=== PATIENT | female | born 1990 | race Caucasian/White ===

== ENCOUNTER 2016-08-24 11:11 | Inpatient (IN) | payer OTHER ==
[~2016-08-24] VITALS: Ht 172.7 cm; Wt 73.0 kg
[2016-08-24] VITALS (11 sets, daily range): BP systolic 105–123; BP diastolic 51–69
[~2016-08-24 11:11] MED LIST: ACETAMINOPHEN500 MG PO; BIRTH CONTROL PILLS; CARDIZEM30 MG PO; MOTRIN800 MG PO; PERCOCET 5/31 TABLET PO; PRENATAL TABLE1 EAC3 PO; PROCARDIA20 MG PO
[2016-08-24] MEDS ORDERED: MACROBID100 MG PO (12:44)
[2016-08-24 13:26] LABS: EOSINOPHIL (%) 0.3 % (0-5); IMMATURE GRANULOCYTE (%) 0.5 % (0.0-0.7); IMMATURE GRANULOCYTE COUNT 0.1 K/uL; INSTRUMENT ABS NEUTROPHIL CT 9.3 K/uL; LYMPHOCYTE COUNT 1.3 K/uL (1.0-2.8); MCH 29.9 PG (29.0-34.0); MCHC 33.7 G/DL (30.0-36.0); MCV 88.6 FL (83-99); MEAN PLAT.VOLUME 11.2 uM^3 (9.5-12.4); MONOCYTE (%) 4.5 % (3-12); MONOCYTE COUNT 0.5 K/uL (0-0.8); NEUTROPHIL (%) 82.5 % (45-76); NEUTROPHIL COUNT 9.3 K/uL (1.8-6.4); PLATELET COUNT 167 K/uL (156-360); RBC DIS.WIDTH-CV 13.5 % (11.8-14.6); RBC DIS.WIDTH-SD 43.6 % (39-53); RED BLOOD COUNT 3.95 M/uL (3.80-5.20); WHITE BLOOD COUNT 11.2 K/uL (4.1-10.2)
[2016-08-24] MEDS ORDERED: IBUPROFEN800 MG PO (14:38)
[2016-08-25 07:30] VITALS: BP 126/76
[2016-08-25 15:50] VITALS: BP 106/60
[2016-08-25 23:45] VITALS: BP 113/58
[2016-08-26 07:59] VITALS: BP 105/67
== END 2016-08-26 13:57 | disposition home or self-care (01) | DRG 775 ==
LOC: LDRP-OP 11:11 → 2WEST 11:12 → LDRP-OP 10-04 14:20
PROVIDERS: Nurse Practitioner
DX: O70.0 First degree perineal laceration during delivery (principal); O69.81X0 Labor and delivery complicated by cord around neck, without compression, not applicable or unspecified; O34.211 Maternal care for low transverse scar from previous cesarean delivery; Z3A.38 38 weeks gestation of pregnancy; Z37.0 Single live birth
CPT/HCPCS: 85025; 86900; 86901; J2590; J7120

== ENCOUNTER 2017-04-07 04:49 | Emergency (ER) | payer OTHER ==
[~2017-04-07] VITALS: Ht 172.7 cm; Wt 58.6 kg
[~2017-04-07 04:49] MED LIST changes: +IBUPROFEN800 MG PO; +MACROBID100 MG PO
[2017-04-07 05:41] LABS: ALBUMIN 4.7 g/dL (3.2-4.8); CHLORIDE 106 mEq/L (99-109); POTASSIUM 4.3 mEq/L (3.7-5.4); SODIUM 140 mEq/L (136-147)
[2017-04-07 05:44] LABS: GLUCOSE 109 mg/dL (70-99); TOTAL PROTEIN 7.4 g/dL (6.4-8.3)
[2017-04-07 05:46] LABS: TOTAL BILIRUBIN 1.1 mg/dL (0.0-1.0)
[2017-04-07 05:47] LABS: ALKALINE PHOSPHATASE 54 IU/L (3-129); CREATININE 0.9 mg/dL (0.6-1.3); GFR ESTIMATE (CALCULATED) > 59 mL/min/
[2017-04-07 05:48] LABS: UREA NITROGEN (BUN) 28 mg/dL (9-23)
[2017-04-07 05:49] LABS: AST (GOT) 15 IU/L (2-34)
[2017-04-07 05:50] LABS: ALT (GPT) 14 IU/L (3-49)
[2017-04-07 05:51] LABS: LIPASE 18 U/L (1.0-51.0)
[2017-04-07 05:57] LABS: QUANTITATIVE HCG < 4.0 MIU/ML
[2017-04-07 05:58] LABS: HEMATOCRIT 40.9 % (36.0-46.0); HEMOGLOBIN 13.9 G/DL (11.9-15.5); MCH 29.1 PG (29.0-34.0); MCV 85.7 FL (83-99); PLATELET COUNT 217 K/uL (156-360); RBC DIS.WIDTH-CV 13.4 % (11.8-14.6); RBC DIS.WIDTH-SD 42.1 % (39-53); RED BLOOD COUNT 4.77 M/uL (3.80-5.20); WHITE BLOOD COUNT 8.3 K/uL (4.1-10.2)
[2017-04-07] MEDS ORDERED: PROMETHAZINE HC25 M1 PO (07:34)
[2017-04-07] MEDS ORDERED: BENTYL10 MG PO (07:34)
[2017-04-07 07:41] LABS: APPEARANCE CLEAR ((CLEAR)); BILIRUBIN NEGATIVE; BLOOD NEGATIVE; COLOR YELLOW ((YELLOW)); GLUCOSE (STRIP) NEGATIVE; KETONES 80; LEUKOCYTES NEGATIVE; NITRITE NEGATIVE; PROTEIN (STRIP) NEGATIVE; SPECIFIC GRAVITY 1.031 (1.000-1.030); UCUL ADDED? NO; UROBILINOGEN 0.2 MG/DL (0.2-1.0)
[2017-04-07 09:16] VITALS: BP 96/53
== END 2017-04-07 09:17 | disposition home or self-care (01) ==
LOC: EME 04:49
DX: K52.9 Noninfective gastroenteritis and colitis, unspecified (principal); R06.4 Hyperventilation; E86.0 Dehydration
CPT/HCPCS: 74177; 80053; 81003; 83690; 84702; 85027; 99281; 99284; J2270; J2405; J7030; Q0169